=== PATIENT | male | born 1960 | race Hispanic/Latino ===

== ENCOUNTER 2024-07-01 05:54 | Day surgery (SDC) | payer MEDICARE ==
[2024-07-01] VITALS (13 sets, daily range): BP systolic 101–132; BP diastolic 59–78; PULSE 75–92; RESP 15–20; TEMP 97.5–98.6
[~2024-07-01] VITALS: Ht 157.5 cm; Wt 66.2 kg
[2024-07-01] MEDS: 0.9%NACL 1000ML 1,000 ML IV ONE (06:39)
[2024-07-01] MEDS ORDERED: FAMO20TA8 PO (06:43)
[2024-07-01] MEDS ORDERED: METF-444 PO (06:43)
[2024-07-01] MEDS ORDERED: PANT40TA54 PO (06:43)
[2024-07-01] MEDS ORDERED: TAMS-1 PO (06:43)
[2024-07-01] MEDS ORDERED: ATOR40TA71 PO (06:43)
[2024-07-01] MEDS ORDERED: ASPI-1197 PO (06:43)
[2024-07-01] MEDS ORDERED: proPOFol 10 MG/ML 20ML VIAL IV ONE (07:56)
[2024-07-01] MEDS ORDERED: FENTanyl CITRate PF 50 MCG/1 ML 2ML VIAL ONE (07:56)
[2024-07-01] MEDS ORDERED: LIDOCAINE HCL 400MG/20ML VIAL ONE (07:56)
[2024-07-01] MEDS ORDERED: ePHEDrine SULFate 50 MG/ML AMPULE ONE (08:09)
== END 2024-07-01 09:30 | disposition home or self-care (01) ==
LOC: DAH 05:54
PROVIDERS: ATTEND Surgery
DX: C20 Malignant neoplasm of rectum (principal); K56.690 Other partial intestinal obstruction; I10 Essential (primary) hypertension; E11.9 Type 2 diabetes mellitus without complications; K21.9 Gastro-esophageal reflux disease without esophagitis; M19.90 Unspecified osteoarthritis, unspecified site; E78.5 Hyperlipidemia, unspecified; Z79.84 Long term (current) use of oral hypoglycemic drugs; Z79.82 Long term (current) use of aspirin; Z79.899 Other long term (current) drug therapy
CPT/HCPCS: 45330; 82948 ×2; J3010; J3490 ×2; J7030; J2704

== ENCOUNTER → 2024-08-08 | Outpatient (CLI) | payer MEDICARE ==
[~2024-08-08] MED LIST: ASPI-1197 PO; ATOR40TA71 PO; FAMO20TA8 PO; METF-444 PO; PANT40TA54 PO; TAMS-1 PO
[2024-08-08 13:53] LABS: CREATININE 0.9 mg/dL (0.5-1.3)
== END | disposition home or self-care (01) ==
LOC: LAB 12:54
PROVIDERS: ATTEND Internal Medicine
DX: C20 Malignant neoplasm of rectum (principal)
CPT/HCPCS: 36415; 82565; 84520

== ENCOUNTER → 2024-08-12 | Outpatient (CLI) | payer MEDICARE ==
[~2024-08-12] MED LIST changes: +GADOTERATE MEGLUMINE 10 MMOL/20 ML VIAL IV ONE
--- NOTE | 2024-08-12 13:36 | HMCIMG ---
MR PELVIS W/WO CON HISTORY: Rectal cancer COMPARISON: None TECHNIQUE: MRI of the pelvis was performed utilizing multiple pulse sequences in axial, coronal and sagittal planes. Patient was given 14 cc of Clariscan through intravenous route. FINDINGS: Evaluation of bowel loops are limited due to motion artifacts in this MRI study. CT may be performed for complete evaluation. There is extensive masslike structure noted in the rectosigmoid colon measuring 1.5 cm in cross section dimension and 9 cm in length. Colonoscopy and CT correlation is recommended. Circumferential wall thickening is seen of the rectum and rectosigmoid colon. Bladder is moderately distended. There is no evidence of pelvic adenopathy or ascites. Degenerative changes are seen of the spine and bilateral hips. IMPRESSION: 1. There is long segment of colon wall thickening noted involving the sigmoid colon with neoplastic process not excluded. CT correlation and colonoscopy correlation are recommended. Circumferential wall thickening is also seen in the rectum.
== END | disposition home or self-care (01) ==
LOC: RAH 07:58
PROVIDERS: ATTEND Surgery
DX: C20 Malignant neoplasm of rectum (principal); N32.89 Other specified disorders of bladder; M16.0 Bilateral primary osteoarthritis of hip
CPT/HCPCS: 72197; A9575

== ENCOUNTER 2025-05-05 14:30 | Inpatient (IN) | payer MEDICARE, MEDICAID ==
[~2025-05-05] VITALS: Ht 157.5 cm; Wt 69.4 kg
[2025-05-05 13:48] VITALS: BP 130/76; PULSE 98; RESP 16; TEMP 98.4
[2025-05-05 13:49] LABS: IMMATURE GRANULOCYTE ABSOLUTE 0.10 K/uL (0-1); NUCLEATED RED BLOOD CELLS 0.0 % (0.0-0.19); PLATELET COUNT (AUTO) 161 K/uL (130-400); RED BLOOD CELL COUNT(AUTO) 4.31 MIL/uL (4.50-6.20); RED CELL DISTRIBUTION WIDTH 12.5 % (11.0-15.5); WHITE BLOOD COUNT (AUTO) 5.8 K/uL (4.8-10.8)
[2025-05-05 13:59] LABS: INR 1.02 (0.85-1.15)
[2025-05-05 14:14] LABS: ASPARTATE AMINOTRANSFERASE 21.0 U/L (10-37); CREATININE 0.9 mg/dL (0.5-1.3); GLOMERULAR FILTR. RATE CALC 94.0 mL/min (>90); GLUCOSE,RANDOM 142.0 mg/dL (70-105); SODIUM SERUM 143.0 mmol/L (136-145); TOTAL PROTEIN, SERUM 6.7 g/dL (6.0-8.3); UREA NITROGEN, BLOOD 13.0 mg/dL (7-18)
--- NOTE | 2025-05-05 14:29 | EKG ---
[facility] Test Date: 2025-05-05 Test Time: 13:38:52 Pat Name: RAINER GALLEGOS Department: Patient ID: [facility] [place]-[id number] Room: 429 Gender: M Deployment Technician: [id number] : 1960 Requested By: SAVITA GARZON Order Number: [id number] Reading MD: Salvador Dowd Measurements Intervals [place] Rate: 90 P: 38 MD: 140 QRS: 35 QRSD: 74 T: 54 QT: 338 QTc: 414 Interpretive Statements Sinus rhythm No previous ECG available for comparison Electronically Signed On 05-10-2025 10:26:28 CDT by Salvador Dowd Please click the below link to view image of tracing.
[~2025-05-05 14:30] MED LIST changes: -GADOTERATE MEGLUMINE 10 MMOL/20 ML VIAL IV ONE; +LOSA50TA64 PO; -PANT40TA54 PO; -TAMS-1 PO
[2025-05-06] VITALS (18 sets, daily range): BP systolic 109–146; BP diastolic 44–71; PULSE 58–76; RESP 9–20; TEMP 96.9–97.9
[2025-05-06] MEDS: INVANZ 1GM+NS 50ML IVPB 50 ML IV ONE (07:00)
[2025-05-06] MEDS: 0.9%NACL 1000ML 1,000 ML IV ONE (13:55)
[2025-05-06] MEDS ORDERED: LIDOCAINE PF 100MG/5ML (2%) SYRINGE 5ML ONE (16:06)
[2025-05-06] MEDS ORDERED: GLYCOPYRROLATE 0.2 MG/ML 5 ML VIAL ONE (16:06)
[2025-05-06] MEDS ORDERED: SUCCINYLCHOLINE CHLORIDE 20 MG/ML 10 ML VIAL ONE (16:06)
[2025-05-06] MEDS ORDERED: NEOSTIGMINE METHYLSULFATE 1MG/ML IV ONE (16:06)
[2025-05-06] MEDS ORDERED: MIDAZOLAM HCL 1 MG/ML 2ML VIAL ONE (16:08)
--- NOTE | 2025-05-06 16:41 | OP ---
Operative Note: DATE OF PROCEDURE: 05/06/25 SURGEON: SAVITA GARZON MD AIRPLANE ELECTRICAL REPAIRER: [None] ANESTHESIA: [General endotracheal anesthesia] ANESTHESIOLOGIST/CHART PICKER: [] PREOPERATIVE DIAGNOSIS: [Rectal cancer] POSTOPERATIVE DIAGNOSIS: [Rectal cancer] SYNOPSIS: [No evidence of metastatic disease. No leak from anastomosis. Good blood supply to the anastomosis based on firefly.] PROCEDURE: [1. Robotic low anterior resection. 2. Robotic creation of diverting ileostomy. 3. Creation of omental flap. 4. Flexible sigmoidoscopy.] ESTIMATED BLOOD LOSS: [30 mL] INDICATIONS: [The patient is a very pleasant 65-year-old male who presents to the office with a rectal cancer. He has completed total neoadjuvant therapy. He was offered operative management. Complications, risks alternatives and benefits have been discussed with the patient and family in detail. Risks include infection, bleeding, injury to surrounding structures, need for further procedures, injury to the ureter, injury to nerves, leak from anastomosis, poor bowel function, need for permanent stoma, need for further intervention and . All questions were answered to their satisfaction and they all wished to proceed with the operation.] DESCRIPTION OF PROCEDURE: [The patient was brought to the operating theater and placed supine on the operating table. After appropriate general endotracheal anesthesia was administered and IV antibiotics given the patient is placed in the low lithotomy position. The abdomen was prepped and draped in appropriate sterile surgical fashion. Local anesthetic was injected and the Veress needle was used to insufflate the abdomen. The Optiview technique was used to enter the abdomen without any injury to surrounding structures. The abdomen was explored and there was no evidence of metastatic disease. Four other trocars were placed under direct visualization without injury. A incision was created at a previously marked right upper quadrant site for an ileostomy. A wound protractor was placed. The robot was docked in the usual sterile fashion. Attention was drawn to the left colon sigmoid colon was mobilized along the white line of Toldt. The left ureter was identified and preserved. The superior hemorrhoidal vessels were isolated and transected. A circumferential dissection around the rectum was achieved. The total mesorectal excision was performed. The presacral space was entered and the dissection was taken to the pelvic floor. The mass was identified by the tattoo. The rectum was transected at the lower rectum encompassing a total mesorectal excision. An end-to-side anastomosis was created between the rectum and the descending colon using a 29 mm EEA stapler. Firefly was utilized to assure good blood flow to anastomosis. An amniotic graft was placed at the anastomosis. An omental flap was created placed in the pelvis. The firefly was utilized to assure good blood flow to the anastomosis at both the transection point and time of anastomosis. The omental flap was also noted to be viable. The drain was placed in the pelvis. A segment of small bowel was brought up to the right upper quadrant for a diverting ileostomy. This was matured using a 3-0 chromic suture in a modified Harrison fashion. Excellent hemostasis was achieved. There were no complications. The instrument, sponge and needle count reported as correct x2 by nursing staff. A flexible sigmoidoscope was inserted and advanced to the anastomosis which was viable, had no bleeding and was noted to have no leak. All the above discussed with family.] SAVITA GARZON MD May 06, 2025 16:41
[2025-05-06] MEDS: LIDOCAINE 1%-EPI 1:100,000 20 ML VIAL ONE (18:09)
[2025-05-06] MEDS: INDOCYANINE GREEN 25 MG VIAL IJ ONE (20:05)
[2025-05-06] MEDS: SUGAMMADEX SODIUM 200 MG/2 ML VIAL IV ONE (22:02)
[2025-05-07] VITALS (12 sets, daily range): BP systolic 110–153; BP diastolic 49–74; PULSE 62–94; RESP 17–20; TEMP 97.5–99.4; O2SAT 95–98
--- NOTE | 2025-05-07 00:21 | CONS ---
Consult Note Vitals/Labs Vital Signs Date Time Temp Pulse Resp B/P (MAP) Pulse Ox O2 Delivery O2 Flow Rate FiO2 05/06/25 23:35 97.3 58 20 95 Nasal Cannula 2.0 24 REASON FOR CONSULT: [Medical Management] HISTORY OF PRESENT ILLNESS: [Mr. Gannon is 65-year-old that was seen 04/11 reports that admitted cancer Service. Patient is status post low anterior resection on 05/06/25. Hospitalist service was requested for medical management. Past medical history: Diabetes mellitius type2, hypertension, hyperlipidemia, arthritis Past surgical history: Denies previous surgeries SOCIAL HISTORY: [Patient has smoked three cigarettes daily. Patient drinks alcohol once a week usually eight beers that are 16 oz each. Patient denies drug use.] ASSESSMENT: [Rectal cancer, POA Status post robotic low anterior resection on 05/06/2025 Diabetes mellitius type2 Hypertension Hyperlipidemia Arthritis] PLAN: [ Admit patient to medical floor as an patient status. Patient is being followed by Colorectal surgery Service. Clear liquid diet. Monitor patient's labs. D5 1/2 NS +20 KCL at 75 mL/HR Patient received 1 of Invanz As-needed Tylenol for fever DVT prophylaxis with Lovenox 40 mg subcutaneously once daily. Famotidine 20 mg IV twice daily for GI prophylaxis As needed analgesia with hydrocodone, morphine As-needed antiemetic, Zofran Insulin sliding scale Glucometer checks a.c. and HS One thousand eight hundred ADA with no okay with General surgery Service Activity as tolerated Intake and output every shift Incentive spirometry every 4 hours while awake AMIRA drain to bulb suction Out of bed to chair twice daily Reconciled patient's home medications, continue losartan, atorvastatin. 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 Allergies: Coded Allergies: No Known Drug Allergies (Unverified Allergy, Unknown, 06/30/24) Medications Current Medications Ertapenem 50 ml @ 100 mls/hr ONCE ONCE IV; Start 05/06/25 at 07:00; Stop 05/06/25 at 07:29; Status DC Sodium Chloride 1,000 ml @ As Directed STK-MED ONCE IV Last administered on 05/06/25at 13:55; Start 05/06/25 at 12:09; Stop 05/06/25 at 12:09; Status DC Dexamethasone Sodium Phosphate 10 mg STK-MED ONCE .ROUTE; Start 05/06/25 at 16:06; Stop 05/06/25 at 16:06; Status DC Lidocaine HCl 100 mg STK-MED ONCE .ROUTE; Start 05/06/25 at 16:06; Stop 05/06/25 at 16:06; Status DC Glycopyrrolate 1 mg STK-MED ONCE .ROUTE; Start 05/06/25 at 16:06; Stop 05/06/25 at 16:06; Status DC Ondansetron HCl 4 mg STK-MED ONCE .ROUTE; Start 05/06/25 at 16:06; Stop 05/06/25 at 16:06; Status DC Propofol 200 mg STK-MED ONCE IV; Start 05/06/25 at 16:06; Stop 05/06/25 at 16:07; Status DC Neostigmine Methylsulfate 10 mg STK-MED ONCE IV; Start 05/06/25 at 16:06; Stop 05/06/25 at 16:07; Status DC Succinylcholine Chloride 200 mg STK-MED ONCE .ROUTE; Start 05/06/25 at 16:06; Stop 05/06/25 at 16:07; Status DC Fentanyl Citrate 100 mcg STK-MED ONCE .ROUTE; Start 05/06/25 at 16:07; Stop 05/06/25 at 16:07; Status DC Midazolam HCl 2 mg STK-MED ONCE .ROUTE; Start 05/06/25 at 16:08; Stop 05/06/25 at 16:08; Status DC Indocyanine Green 25 mg STK-MED ONCE IJ Last administered on 05/06/25at 20:05; Start 05/06/25 at 16:51; Stop 05/06/25 at 16:51; Status DC Bupivacaine HCl 5 mg STK-MED ONCE .ROUTE Last administered on 05/06/25at 18:09; Start 05/06/25 at 16:53; Stop 05/06/25 at 16:53; Status DC Lidocaine/ Epinephrine 20 ml STK-MED ONCE .ROUTE Last administered on 05/06/25at 18:09; Start 05/06/25 at 16:53; Stop 05/06/25 at 16:54; Status DC Fentanyl Citrate 100 mcg STK-MED ONCE .ROUTE; Start 05/06/25 at 17:08; Stop 05/06/25 at 17:08; Status DC Phenylephrine HCl 10 mg STK-MED ONCE IV; Start 05/06/25 at 17:42; Stop 05/06/25 at 17:42; Status DC Rocuronium [place] 50 mg STK-MED ONCE .ROUTE; Start 05/06/25 at 18:25; Stop 05/06/25 at 18:26; Status DC Fentanyl Citrate 100 mcg STK-MED ONCE .ROUTE; Start 05/06/25 at 21:13; Stop 05/06/25 at 21:13; Status DC Acetaminophen/ Hydrocodone Bitart 1 tab Q4H PRN PO; Start 05/06/25 at 21:30; Stop 05/11/25 at 21:29 Morphine Sulfate 4 mg Q3H PRN IV; Start 05/06/25 at 21:30; Stop 05/13/25 at 21:29 Ondansetron HCl 4 mg Q4H PRN IVP Last administered on 05/06/25at 23:06; Start 05/06/25 at 21:30; Stop 06/05/25 at 21:29 Acetaminophen 650 mg Q4H PRN PO; Start 05/06/25 at 21:30; Stop 06/05/25 at 21:29 Famotidine 20 mg BID IV; Start 05/07/25 at 09:00; Stop 06/06/25 at 08:59 Insulin Human Regular AD PRN SQ; Start 05/06/25 at 21:30; Stop 06/05/25 at 21:29 Potassium Chloride/Dextrose/ Sod Cl 1,000 ml @ 75 mls/hr [id number] IV; Start 05/06/25 at 21:30; Stop 06/05/25 at 21:29 Enoxaparin Sodium 40 mg DAILY SQ; Start 05/07/25 at 09:00; Stop 06/06/25 at 08:59 Fentanyl Citrate 100 mcg STK-MED ONCE .ROUTE Last administered on 05/06/25at 22:01; Start 05/06/25 at 21:40; Stop 05/06/25 at 21:40; Status DC Fentanyl Citrate 25 mcg ONCE ONCE IVP Last administered on 05/06/25at 21:59; Start 05/06/25 at 21:41; Stop 05/06/25 at 21:48; Status DC Acetaminophen 100 ml @ As Directed STK-MED ONCE .ROUTE Last administered on 05/06/25at 21:48; Start 05/06/25 at 21:43; Stop 05/06/25 at 21:43; Status DC Fentanyl Citrate 50 mcg ONCE ONCE IVP; Start 05/06/25 at 22:00; Stop 05/06/25 at 22:01; Status DC Fentanyl Citrate 25 mcg ONCE ONCE IVP; Start 05/06/25 at 22:00; Stop 05/06/25 at 22:06; Status DC MELISSA HERNANDEZ WILDLIFE CONTROL OPERATOR May 07, 2025 00:21
[2025-05-07] MEDS: D5W-1/2 NS/20MEQ KCL 1,000 ML IV SCH (00:44)
[2025-05-07 04:50] LABS: IMMATURE GRANULOCYTE ABSOLUTE 0.04 K/uL (0-1); NUCLEATED RED BLOOD CELLS 0.0 % (0.0-0.19); PLATELET COUNT (AUTO) 118 K/uL (130-400); RED BLOOD CELL COUNT(AUTO) 3.66 MIL/uL (4.50-6.20); RED CELL DISTRIBUTION WIDTH 12.2 % (11.0-15.5); WHITE BLOOD COUNT (AUTO) 8.3 K/uL (4.8-10.8)
[2025-05-07 05:08] LABS: CREATININE 1.0 mg/dL (0.5-1.3); GLOMERULAR FILTR. RATE CALC 83.0 mL/min (>90); GLUCOSE,RANDOM 196.0 mg/dL (70-105); SODIUM SERUM 140.0 mmol/L (136-145); UREA NITROGEN, BLOOD 11.0 mg/dL (7-18)
[2025-05-07 05:13] LABS: WBC MORPHOLOGY CONSISTENT W/DIFF
--- NOTE | 2025-05-07 08:27 | PN ---
COLORECTAL PROGRESS NOTE Date of Visit: May 07, 2025 Time of Visit: 08:22 Events / Notes: [ This is a 65 yo male patient with hx of rectal cancer who has completed total neoadjuvant therapy. He underwent a robotic low anterior resection with diverting ileostomy, creation of omental flap, and flexible sigmoidoscopy on 05/06/25. Patient VSS. WBC 8.3, HGB 11.9, HCT 34.3, platelets of 118. VSS. Patient patient examined at bedside. He is resting in bed in no acute distress. Bilateral breath sounds are clear. Abdomen is soft and mildly distended. Ileostomy in place with small amount of liquid output. AMIRA drain to left side of abdomen with serosanguineous discharge. Active bowel sounds are present. Clarke catheter draining clear yellow urine. Plan of care discussed with patient. Encouraged ambulation and IS exercises will have PT evaluate patient and assist with mobility. ] Review of Systems: CONSTITUTIONAL: No malaise or change in sensation of wellbeing. ENMT: No rhinorrhea, otorrhea, sinus pain, ear ache. CARDIOVASCULAR: No angina, palpitations, orthopnea or paroxysmal dyspnea. RESPIRATORY: No SOB. GASTROINTESTINAL: No abdominal pain, nausea, vomiting, diarrhea, hematemesis, melena or change in the patient's habitual bowel movements consistency/number. GENITOURINARY: No dysuria, hematuria or change in bladder continence. MUSCULOSKELETAL: No new muscle pain or decrease in muscular strength. No new joint swelling, redness or tenderness. SKIN: No new rash. Physical Exam: GEN: Awake, alert, oriented in person, time and place, and in no acute distress. HEENT: No sinus tenderness. Tympanic membranes were not examined. No rhinorrhea. Oral pharyngeal mucosa is pink, moist and within normal limits. Neck is supple with no cervical lymphadenopathy, thyromegaly or JVD. CHEST: Inspection, palpation and percussion of the chest were unremarkable. Lung auscultation revealed normal breath sounds bilaterally. CARDIAC: PMI is within normal limits. Heart sounds are regular. Normal S1, S2. No gallop or murmur. ABD: Soft, non-tender and not distended. No peritoneal signs on palpation. No organomegaly. Normal bowel sounds. EXT: No cyanosis or clubbing. No edema. SKIN: Intact. No rashes. JOINTS: No evidence of synovitis or acute arthritis. NEURO: Alert and oriented to name, place and person. Cranial nerve examination is unremarkable. No focal motor deficits. Normal speech. Gait is normal. Strength is normal. Vital Signs (last 8hr) Date Time Temp Pulse Resp B/P (MAP) Pulse Ox O2 Delivery O2 Flow Rate FiO2 05/07/25 04:35 97.9 64 18 139/71 98 Nasal Cannula 2.0 05/07/25 03:35 97.7 63 18 128/61 98 Nasal Cannula 2.0 05/07/25 02:35 97.5 62 18 116/49 97 Nasal Cannula 2.0 05/07/25 01:35 97.9 66 20 110/50 97 Nasal Cannula 2.0 05/07/25 00:35 97.9 69 20 151/67 97 Nasal Cannula 2.0 24 Laboratory: [ ] Laboratory: Test 05/07/25 05:46 05/07/25 04:21 05/05/25 13:35 Range/Units Whole Blood Glucose 197 H 70-110 MG/DL White Blood Count 8.3 4.8-10.8 K/uL Red Blood Count 3.66 L 4.50-6.20 MIL/uL Hemoglobin 11.9 L 14.0-18.0 g/dL Hematocrit 34.3 L 42-54 % Mean Corpuscular Volume 93.7 79-99 fL Mean Corpuscular Hemoglobin 32.5 27.0-33.0 pg Mean Corpuscular Hemoglobin Concent 34.7 32.0-36.0 g/dL Red Cell Distribution Width 12.2 11.0-15.5 % Platelet Count 118 #L 130-400 K/uL Mean Platelet Volume 10.4 7.5-10.5 fL Immature Granulocyte % (Auto) 0.5 0-1 % Neutrophils (%) (Auto) 90.9 H 40.0-77.0 % Lymphocytes (%) (Auto) 2.4 L 21.0-51.0 % Monocytes (%) (Auto) 6.1 3.0-13.0 % Eosinophils (%) (Auto) 0.0 0.0-8.0 % Basophils (%) (Auto) 0.1 0.0-5.0 % Neutrophils # (Auto) 7.6 1.8-7.7 K/uL Lymphocytes # (Auto) 0.2 L 1.0-4.8 K/uL Monocytes # (Auto) 0.5 0.1-1.0 K/uL Eosinophils # (Auto) 0.00 0.00-0.70 K/uL Basophils # (Auto) 0.01 0.00-0.20 K/uL Absolute Immature Granulocyte (auto 0.04 0-1 K/uL Nucleated Red Blood Cells 0.0 0.0-0.19 % White Cell Morphology Comment CONSISTENT W/DIFF Sodium Level 140 136-145 mmol/L Potassium Level 4.3 3.5-5.1 mmol/L Chloride Level 105 101-111 mmol/L Carbon Dioxide Level 27 21-32 mmol/L Blood Urea Nitrogen 11 7-18 mg/dL Creatinine 1.0 0.5-1.3 mg/dL Glomerular Filtration Rate Calc 83 >90 mL/min Random Glucose 196 H 70-105 mg/dL Total Calcium 8.3 L 8.5-10.1 mg/dL Prothrombin Time 10.8 9.6-11.6 SEC Prothromb Time International Ratio 1.02 0.85-1.15 Activated Partial Thromboplast Time 26.1 L 26.3-35.5 SEC Total Bilirubin 0.4 0.2-1.0 mg/dL Aspartate Amino Transf (AST/SGOT) 21 10-37 U/L Alanine Aminotransferase (ALT/SGPT) 46 12-78 U/L Alkaline Phosphatase 81 50-136 U/L Total Protein 6.7 6.0-8.3 g/dL Albumin 3.7 3.5-5.0 g/dL Current Medications Medications (Trade) Dose Ordered Sig/Manoj Route PRN Reason Start Time Stop Time Status Last Admin Dose Admin Acetaminophen (TYLenol 325MG TAB) 650 mg Q4H PRN PO TEMPERATURE GREATER THAN 101 05/06/25 21:30 06/05/25 21:29 Acetaminophen/ Hydrocodone Bitart (NORco 5/325MG) 1 tab Q4H PRN PO MODERATE PAIN (4-6) 05/06/25 21:30 05/11/25 21:29 Atorvastatin Calcium (LIPItor 40MG) 40 mg DAILY PO 05/07/25 09:00 06/06/25 08:59 Enoxaparin Sodium (Lovenox) 40 mg DAILY SQ 05/07/25 09:00 06/06/25 08:59 Famotidine (Pepcid 20mg Vial) 20 mg BID IV 05/07/25 09:00 06/06/25 08:59 Insulin Human Regular (humuLIN R 100 UNIT/ML 3ML) AD PRN SQ SLIDING SCALE COVERAGE 05/06/25 21:30 06/05/25 21:29 05/07/25 07:43 4 UNIT Losartan Potassium (CozAAR 50 mg TAB) 50 mg DAILY PO 05/07/25 09:00 06/06/25 08:59 Morphine Sulfate (morPHINE 4MG SYG) 4 mg Q3H PRN IV SEVERE PAIN (7-10) 05/06/25 21:30 05/13/25 21:05/07/25 00:43 4 MG Ondansetron HCl (zoFRAN 4MG INJ) 4 mg Q4H PRN IVP NAUSEA 05/06/25 21:30 06/05/25 21:29 05/06/25 23:06 4 MG Potassium Chloride/Dextrose/ Sod Cl 1,000 ml @ 75 mls/hr [id number] IV 05/06/25 21:30 06/05/25 21:29 05/07/25 00:44 75 MLS/HR Diagnostics / Radiology: [COPY/PASTE HERE IF NO REPORTS PLEASE DELETE SECTION] Assessment: [Rectal cancer ] Plan: Advance diet as tolerated Encourage ambulation Encourage I/s exercises Pain meds as needed Antiemetics prn Keep clarke in place and remove on post op day 2 Begin Lomotil on POD 2. Please call with questions, concerns and change in clinical status. Appreciate hospitalist's assistance in our patient care. [ ] IRMA MASCORRO NP May 07, 2025 08:27
[2025-05-07] MEDS: FAMOTIDINE 20MG VIAL IV SCH (08:47)
[2025-05-07] MEDS: ENOXAPARIN SODIUM 40 MG/0.4 ML SYRINGE SQ SCH (08:48)
[2025-05-07] MEDS: HYDROcodone/APAP 5/325 1 TAB TABLET PO PRN (09:37)
--- NOTE | 2025-05-07 09:54 | NUR ---
DCP: HOME Sw met with pt who is a gentleman, lives alone in his housing apt. Pt has a provider daily for 4hrs, Rehana Santo (also his best friend) to assist pt with ADLS, home management, transportation and meal prep. Pt has no HH or HD services. PCP is Noemy Peters and uses [facility] pharm for rx needs. Discussed dc needs. encouraged pt to consider SNF, since he lives alone, pt declined, wants to go home. Educated on need for MPOA. Pt states he at 15yro and has not seen "the girl" since. they never but he has no idea where she is now, he has no children. He has a brother Nikolai Gannon. Pt does not have cell phone with him. He will provide contact #s when he has them. Pt's nurse made aware of need for contact # Addendum: 05/07/25 at 1002 by ZAFAR WELCH SS Amended: Links added.
[2025-05-07] MEDS ORDERED: DOCU-116 PO (10:45)
[2025-05-07] MEDS ORDERED: HYDR-4060 PO (10:45)
[2025-05-08] VITALS: BP 130/70; PULSE 90; RESP 20; TEMP 98.7
[2025-05-08 04:00] VITALS: BP 135/76; PULSE 72; RESP 20; TEMP 98.2
[2025-05-08 04:37] LABS: IMMATURE GRANULOCYTE ABSOLUTE 0.04 K/uL (0-1); NUCLEATED RED BLOOD CELLS 0.0 % (0.0-0.19); PLATELET COUNT (AUTO) 118 K/uL (130-400); RED BLOOD CELL COUNT(AUTO) 3.60 MIL/uL (4.50-6.20); RED CELL DISTRIBUTION WIDTH 12.0 % (11.0-15.5); WHITE BLOOD COUNT (AUTO) 6.5 K/uL (4.8-10.8)
[2025-05-08 04:53] LABS: ASPARTATE AMINOTRANSFERASE 17.0 U/L (10-37); CREATININE 0.9 mg/dL (0.5-1.3); GLOMERULAR FILTR. RATE CALC 94.0 mL/min (>90); GLUCOSE,RANDOM 148.0 mg/dL (70-105); SODIUM SERUM 139.0 mmol/L (136-145); TOTAL PROTEIN, SERUM 5.8 g/dL (6.0-8.3); UREA NITROGEN, BLOOD 11.0 mg/dL (7-18)
[2025-05-08] MEDS: DIPHENOXYLATE HCL/ATROPINE 2.5/0.025 MG TAB PO ONE (07:08)
--- NOTE | 2025-05-08 07:56 | NUR ---
NURSING NOTES GAMEZ CATHETER REMOVED @ 0700, WELL TOLERATED BY PATIENT. DENIES C/O PAIN POST REMOVAL OF CATHETER. INSTRUCTED THAT HE NEEDS TO URINATE 4-6 HOURS AFTER CATHETER REMOVAL. IF HE FEELS PRESSURE TO LOWER ABDOMEN AND UNABLE TO URINATE, TO LET US KNOW BY PRESSING THE CALL LIGHT. UNDERSTANDING VERBALIZED. WILL CONTINUE TO MONITOR.
[2025-05-08 08:00] VITALS: BP 137/88; PULSE 78; RESP 18; TEMP 98.7
[2025-05-08 09:59] VITALS: O2SAT 96
--- NOTE | 2025-05-08 11:56 | PN ---
COLORECTAL PROGRESS NOTE Date of Visit: May 08, 2025 Time of Visit: 11:54 Events / Notes: [ This is a 65 yo male patient with hx of rectal cancer who has completed total neoadjuvant therapy. He underwent a robotic low anterior resection with diverting ileostomy, creation of omental flap, and flexible sigmoidoscopy on 05/06/25. Patient VSS. WBC 8.3, HGB 11.9, HCT 34.3, platelets of 118. VSS. Patient patient examined at bedside. He is resting in bed in no acute distress. Bilateral breath sounds are clear. Abdomen is soft and mildly distended. Ileostomy in place with small amount of liquid output. CALI drain to left side of abdomen with serosanguineous discharge. Active bowel sounds are present. Shell catheter draining clear yellow urine. Plan of care discussed with patient. Encouraged ambulation and IS exercises will have PT evaluate patient and assist with mobility. 05/08/25: No acute events overnight. Patient is hemodynamically stable. White count today is at 6.5. Hemoglobin 11.8. Platelets 118. CMP unremarkable. Patient has tolerated his diet with out any nausea or vomiting. He has been able to void and is passing soft output via ileostomy. BBS are clear. His abdomen is soft. CALI drain with serous output. Incisions are D&I. He is ambulating without difficulties. Home care instructions with ER warnings given. He is to keep f/u appt at [facility] on 05/22/25 at 9:15am. He is to keep appt with Roldan Yeager NP stoma nurse for [facility] 05/13/25. Patient verbalized understanding and agreement. ] Review of Systems: CONSTITUTIONAL: No malaise or change in sensation of wellbeing. ENMT: No rhinorrhea, otorrhea, sinus pain, ear ache. CARDIOVASCULAR: No angina, palpitations, orthopnea or paroxysmal dyspnea. RESPIRATORY: No SOB. GASTROINTESTINAL: No abdominal pain, nausea, vomiting, diarrhea, hematemesis, melena or change in the patient's habitual bowel movements consistency/number. GENITOURINARY: No dysuria, hematuria or change in bladder continence. MUSCULOSKELETAL: No new muscle pain or decrease in muscular strength. No new joint swelling, redness or tenderness. SKIN: No new rash. Physical Exam: GEN: Awake, alert, oriented in person, time and place, and in no acute distress. HEENT: No sinus tenderness. Tympanic membranes were not examined. No rhinorrhea. Oral pharyngeal mucosa is pink, moist and within normal limits. Neck is supple with no cervical lymphadenopathy, thyromegaly or JVD. CHEST: Inspection, palpation and percussion of the chest were unremarkable. Lung auscultation revealed normal breath sounds bilaterally. CARDIAC: PMI is within normal limits. Heart sounds are regular. Normal S1, S2. No gallop or murmur. ABD: Soft, non-tender and not distended. No peritoneal signs on palpation. No organomegaly. Normal bowel sounds. ileostomy with soft output. Cali drain with serous output. EXT: No cyanosis or clubbing. No edema. SKIN: Intact. No rashes. JOINTS: No evidence of synovitis or acute arthritis. NEURO: Alert and oriented to name, place and person. Cranial nerve examination is unremarkable. No focal motor deficits. Normal speech. Strength is normal. Vital Signs (last 8hr) Date Time Temp Pulse Resp B/P (MAP) Pulse Ox O2 Delivery O2 Flow Rate FiO2 05/08/25 09:59 96 Room Air* 0 21 05/08/25 08:00 98.8 78 18 137/88 96 Room Air 05/08/25 04:00 98.2 72 20 135/76 95 Room Air Laboratory: [ ] Laboratory: Test 05/08/25 05:03 05/08/25 04:04 05/07/25 04:21 Range/Units Whole Blood Glucose 135 H 70-110 MG/DL White Blood Count 6.5 4.8-10.8 K/uL Red Blood Count 3.60 L 4.50-6.20 MIL/uL Hemoglobin 11.8 L 14.0-18.0 g/dL Hematocrit 33.3 L 42-54 % Mean Corpuscular Volume 92.5 79-99 fL Mean Corpuscular Hemoglobin 32.8 27.0-33.0 pg Mean Corpuscular Hemoglobin Concent 35.4 32.0-36.0 g/dL Red Cell Distribution Width 12.0 11.0-15.5 % Platelet Count 118 L 130-400 K/uL Mean Platelet Volume 10.7 H 7.5-10.5 fL Immature Granulocyte % (Auto) 0.6 0-1 % Neutrophils (%) (Auto) 89.6 H 40.0-77.0 % Lymphocytes (%) (Auto) 2.9 L 21.0-51.0 % Monocytes (%) (Auto) 6.7 3.0-13.0 % Eosinophils (%) (Auto) 0.0 0.0-8.0 % Basophils (%) (Auto) 0.2 0.0-5.0 % Neutrophils # (Auto) 5.8 1.8-7.7 K/uL Lymphocytes # (Auto) 0.2 L 1.0-4.8 K/uL Monocytes # (Auto) 0.4 0.1-1.0 K/uL Eosinophils # (Auto) 0.00 0.00-0.70 K/uL Basophils # (Auto) 0.01 0.00-0.20 K/uL Absolute Immature Granulocyte (auto 0.04 0-1 K/uL Nucleated Red Blood Cells 0.0 0.0-0.19 % Sodium Level 139 136-145 mmol/L Potassium Level 4.0 3.5-5.1 mmol/L Chloride Level 106 101-111 mmol/L Carbon Dioxide Level 28 21-32 mmol/L Blood Urea Nitrogen 11 7-18 mg/dL Creatinine 0.9 0.5-1.3 mg/dL Glomerular Filtration Rate Calc 94 >90 mL/min Random Glucose 148 H 70-105 mg/dL Total Calcium 8.6 8.5-10.1 mg/dL Magnesium Level 2.20 1.80-2.40 mg/dL Total Bilirubin 0.3 0.2-1.0 mg/dL Aspartate Amino Transf (AST/SGOT) 17 10-37 U/L Alanine Aminotransferase (ALT/SGPT) 28 12-78 U/L Alkaline Phosphatase 58 50-136 U/L Total Protein 5.8 L 6.0-8.3 g/dL Albumin 2.9 L 3.5-5.0 g/dL White Cell Morphology Comment CONSISTENT W/DIFF Current Medications Medications (Trade) Dose Ordered Sig/Manoj Route PRN Reason Start Time Stop Time Status Last Admin Dose Admin Acetaminophen (TYLenol 325MG TAB) 650 mg Q4H PRN PO TEMPERATURE GREATER THAN 101 05/06/25 21:30 06/05/25 21:29 Acetaminophen/ Hydrocodone Bitart (NORco 5/325MG) 1 tab Q4H PRN PO MODERATE PAIN (4-6) 05/06/25 21:30 8/4/25 21:29 05/07/25 22:05 1 TAB Atorvastatin Calcium (LIPItor 40MG) 40 mg DAILY PO 05/07/25 09:00 06/06/25 08:59 05/08/25 08:15 40 MG Enoxaparin Sodium (Lovenox) 40 mg DAILY SQ 05/07/25 09:00 06/06/25 08:59 05/08/25 08:15 40 MG Famotidine (Pepcid 20mg Vial) 20 mg BID IV 05/07/25 09:00 06/06/25 08:59 05/08/25 08:15 20 MG Insulin Human Regular (humuLIN R 100 UNIT/ML 3ML) AD PRN SQ SLIDING SCALE COVERAGE 05/06/25 21:30 06/05/25 21:05/07/25 07:43 4 UNIT Losartan Potassium (CozAAR 50 mg TAB) 50 mg DAILY PO 05/07/25 09:00 06/06/25 08:59 05/08/25 08:15 50 MG Morphine Sulfate (morPHINE 4MG SYG) 4 mg Q3H PRN IV SEVERE PAIN (7-10) 05/06/25 21:30 05/13/25 21:29 05/07/25 17:41 4 MG Ondansetron HCl (zoFRAN 4MG INJ) 4 mg Q4H PRN IVP NAUSEA 05/06/25 21:30 06/05/25 21:29 05/07/25 11:45 4 MG Potassium Chloride/Dextrose/ Sod Cl 1,000 ml @ 75 mls/hr [id number] IV 05/06/25 21:30 05/07/25 18:09 DC 05/07/25 00:44 75 MLS/HR Diagnostics / Radiology: [COPY/PASTE HERE IF NO REPORTS PLEASE DELETE SECTION] Assessment: [Rectal cancer ] Plan: Advance diet as tolerated Encourage ambulation Encourage I/s exercises Pain meds as needed Antiemetics prn Monitor ileostomy output and report any output greater than 1000ml. Continue Lomotil qid Patient may be discharge from colorectal standpoint Patient is to f/u at [facility] office on 05/22/25 at 9:15am. Please call with questions, concerns and change in clinical status. Appreciate hospitalist's assistance in our patient care. [ ] IRMA MASCORRO NP May 08, 2025 11:56
[2025-05-08 12:00] VITALS: BP 119/69; PULSE 78; RESP 18; TEMP 98.5
[2025-05-08 14:36] LABS: APPEARANCE,URINE CLEAR (CLEAR); GLUCOSE, URINE (UA) NEGATIVE (NEGATIVE); LEUKOCYTE ESTERASE ,URINE NEGATIVE Leu/uL (NEGATIVE); NITRATE,URINE NEGATIVE (NEGATIVE); OCCULT BLOOD,URINE NEGATIVE (NEGATIVE)
[2025-05-08 14:39] LABS: ADD UA MICROSCOPIC NO
--- NOTE | 2025-05-08 15:03 | PN ---
CATALYST PROGRESS NOTE Date of Service: May 08, 2025 Time of Service: 14:40 SUBJECTIVE: He is a 65 year old male with past medical history of rectal cancer, diabetes mellitus type 2, Hypertension, Hyperlipidemia and arthritis. He completed total neoadjuvant therapy and underwent a robotic low anterior resection with diverting ileostomy, creation of omental flap, and flexible sigmoidoscopy on 05/06/25. Patient has smoked three cigarettes daily. Patient drinks alcohol once a week usually eight beers that are 16 oz each. Patient denies drug use. Hospitalist was consulted for medical management. 05/08/2025: Patient is seen in room no 429. Today is his post operative day 2. He is complaining of burning sensation while urinating. His vitals are in the normal range and his labs are normal except for Hb is 11.8, Plt 118, Glucose is 135, Alb is 2.9, protein is 5.8. He has a AMIRA drain in place and output is 80ml yesterday. He has ileostomy. Shell's catheter was removed today. He is ambulating without difficulties. He has been able to void and is passing soft output via ileostomy. Bowel sounds are clear. His abdomen is soft. He is on GI soft diet. We ordered a urinalysis and it showed no evidence of UTI. In the evening colorectal surgery cleared him for discharge and his AMIRA drain was removed. He has no symptoms. His vitals are stable. So we are signing off. REVIEW OF SYSTEMS CONSTITUTIONAL: Denies fevers, chills, or night sweats. No unintentional weight loss reported. NEUROLOGICAL: Denies headache, amaurosis fugax, motor weakness, sensory deficit, vertigo/spinning sensation, gait abnormalities, or tremors. ENT: No hearing loss, otalgia, otorrhea, rhinitis, rhinorrhea, hoarseness, or sore throat. CARDIOVASCULAR: Denies any exertional angina, dyspnea on exertion, orthopnea, paroxysmal nocturnal dyspnea, palpitations, life-threatening arrhythmias, claudication. PULMONARY: Denies any shortness of breath, cough, phlegm/sputum, hemoptysis, pleuritic chest pain. SLEEP: Denies morning headaches, daytime somnolence or napping. Denies difficulty falling asleep, staying asleep, waking from sleep. Denies knowledge of snoring. GASTROINTESTINAL: Denies any type of dysphagia to either liquids or solids. Denies nausea, vomiting, pyrosis, early satiety, abdominal pain, diarrhea, constipation, or changes in stool consistency or caliber. Denies coffee-ground emesis, hematemesis, hematochezia, or melanotic stools. GENITOURINARY: Denies frequency, urgency, nocturia, hematuria or incontinence (Storage/Irritative symptoms.) Low urinary stream, straining to void, urinary intermittency or hesitancy, splitting of the voiding stream, terminal dribbling. ENDOCRINOLOGIC: Denies polyuria, polydipsia, polyphagia or heat/cold intolerances. HEMATOLOGIC: Denies thrombophilia/previous clots, or coagulopathy/bleeding disorders. ONCOLOGIC: Denies personal history of malignancy. DERMATOLOGIC: Denies rashes or pruritus. PSYCHIATRIC: Denies any suicidal or homicidal ideation. Denies hallucinations. PHYSICAL EXAM GENERAL APPEARANCE: The patient is awake, alert, and oriented, in no acute cardiopulmonary distress. NEUROLOGICAL: Cranial nerves II-XII grossly intact. Motor is 5/5 in bilateral upper and lower extremities proximal to distal. No sensory deficits. HEENT: Face is symmetric. Pupils are equal and reactive. Extraocular movements are intact. NECK: Supple. No JVD. No thyromegaly. No submental, submandibular, pre- /postauricular, occipital or supraclavicular lymphadenopathy. CHEST: Normal chest expansion. No Telemetry. LUNGS: Absence of any rales, rhonchi or any wheezing. CARDIOVASCULAR: Regular. S1 and S2 normal. No appreciable rubs, murmurs or gallops. ABDOMEN: Soft, nontender, and nondistended. There is no rebound, voluntary g uarding, or rigidity. : Deferred. No Shell. EXTREMITIES: Non-edematous and not cyanotic. No clubbing. Good capillary refill. SKIN: No skin breakdown. Vital Signs (last 8hr) Date Time Temp Pulse Resp B/P (MAP) Pulse Ox O2 Delivery O2 Flow Rate FiO2 05/08/25 12:00 98.4 78 18 119/69 98 Room Air 05/08/25 09:59 96 Room Air* 0 21 05/08/25 08:00 98.8 78 18 137/88 96 Room Air LABS: Laboratory: Test 05/08/25 14:27 05/08/25 11:53 05/08/25 04:04 05/07/25 04:21 Range/Units Urine Color LIGHT-YELLOW YELLOW Urine Appearance CLEAR CLEAR Urine pH 6.5 5.0-8.0 Urine Specific [place] 1.008 1.001-1.031 Urine Protein NEGATIVE NEGATIVE mg/dL Urine Glucose (UA) NEGATIVE NEGATIVE mg/dL Urine Ketones NEGATIVE NEGATIVE mg/dL Urine Occult Blood NEGATIVE NEGATIVE Urine Nitrate NEGATIVE NEGATIVE Urine Bilirubin NEGATIVE NEGATIVE mg/dL Urine Urobilinogen 0.2 0.2-1.0 mg/dL Urine Leukocyte Esterase NEGATIVE NEGATIVE [place]/uL Whole Blood Glucose 141 H 70-110 MG/DL White Blood Count 6.5 4.8-10.8 K/uL Red Blood Count 3.60 L 4.50-6.20 MIL/uL Hemoglobin 11.8 L 14.0-18.0 g/dL Hematocrit 33.3 L 42-54 % Mean Corpuscular Volume 92.5 79-99 fL Mean Corpuscular Hemoglobin 32.8 27.0-33.0 pg Mean Corpuscular Hemoglobin Concent 35.4 32.0-36.0 g/dL Red Cell Distribution Width 12.0 11.0-15.5 % Platelet Count 118 L 130-400 K/uL Mean Platelet Volume 10.7 H 7.5-10.5 fL Immature Granulocyte % (Auto) 0.6 0-1 % Neutrophils (%) (Auto) 89.6 H 40.0-77.0 % Lymphocytes (%) (Auto) 2.9 L 21.0-51.0 % Monocytes (%) (Auto) 6.7 3.0-13.0 % Eosinophils (%) (Auto) 0.0 0.0-8.0 % Basophils (%) (Auto) 0.2 0.0-5.0 % Neutrophils # (Auto) 5.8 1.8-7.7 K/uL Lymphocytes # (Auto) 0.2 L 1.0-4.8 K/uL Monocytes # (Auto) 0.4 0.1-1.0 K/uL Eosinophils # (Auto) 0.00 0.00-0.70 K/uL Basophils # (Auto) 0.01 0.00-0.20 K/uL Absolute Immature Granulocyte (auto 0.04 0-1 K/uL Nucleated Red Blood Cells 0.0 0.0-0.19 % Sodium Level 139 136-145 mmol/L Potassium Level 4.0 3.5-5.1 mmol/L Chloride Level 106 101-111 mmol/L Carbon Dioxide Level 28 21-32 mmol/L Blood Urea Nitrogen 11 7-18 mg/dL Creatinine 0.9 0.5-1.3 mg/dL Glomerular Filtration Rate Calc 94 >90 mL/min Random Glucose 148 H 70-105 mg/dL Total Calcium 8.6 8.5-10.1 mg/dL Magnesium Level 2.20 1.80-2.40 mg/dL Total Bilirubin 0.3 0.2-1.0 mg/dL Aspartate Amino Transf (AST/SGOT) 17 10-37 U/L Alanine Aminotransferase (ALT/SGPT) 28 12-78 U/L Alkaline Phosphatase 58 50-136 U/L Total Protein 5.8 L 6.0-8.3 g/dL Albumin 2.9 L 3.5-5.0 g/dL White Cell Morphology Comment CONSISTENT W/DIFF Current Medications Medications (Trade) Dose Ordered Sig/Manoj Route PRN Reason Start Time Stop Time Status Last Admin Dose Admin Acetaminophen (TYLenol 325MG TAB) 650 mg Q4H PRN PO TEMPERATURE GREATER THAN 101 05/06/25 21:30 06/05/25 21:29 Acetaminophen/ Hydrocodone Bitart (NORco 5/325MG) 1 tab Q4H PRN PO MODERATE PAIN (4-6) 05/06/25 21:30 05/11/25 21:29 05/07/25 22:05 1 TAB Atorvastatin Calcium (LIPItor 40MG) 40 mg DAILY PO 05/07/25 09:00 06/06/25 08:59 05/08/25 08:15 40 MG Enoxaparin Sodium (Lovenox) 40 mg DAILY SQ 05/07/25 09:00 06/06/25 08:59 05/08/25 08:15 40 MG Famotidine (Pepcid 20mg Vial) 20 mg BID IV 05/07/25 09:00 06/06/25 08:59 05/08/25 08:15 20 MG Insulin Human Regular (humuLIN R 100 UNIT/ML 3ML) AD PRN SQ SLIDING SCALE COVERAGE 05/06/25 21:30 06/05/25 21:29 05/07/25 07:43 4 UNIT Losartan Potassium (CozAAR 50 mg TAB) 50 mg DAILY PO 05/07/25 09:00 06/06/25 08:59 05/08/25 08:15 50 MG Morphine Sulfate (morPHINE 4MG SYG) 4 mg Q3H PRN IV SEVERE PAIN (7-10) 05/06/25 21:30 05/13/25 21:05/07/25 17:41 4 MG Ondansetron HCl (zoFRAN 4MG INJ) 4 mg Q4H PRN IVP NAUSEA 05/06/25 21:30 06/05/25 21:29 05/07/25 11:45 4 MG Potassium Chloride/Dextrose/ Sod Cl 1,000 ml @ 75 mls/hr [id number] IV 05/06/25 21:05/07/25 18:09 DC 05/07/25 00:44 75 MLS/HR DIAGNOSTICS / RADIOLOGY: [ ] ASSESSMENT: Rectal cancer, POA Status post robotic low anterior resection on 05/06/2025 Post op day 2 Burning micturition Diabetes mellitius type2,POA Hypertension,POA Hyperlipidemia,POA Arthritis,POA PLAN: Rectal cancer, POA Status post robotic low anterior resection on 05/06/2025 Post op day 2 Bowel sounds are clear. Has a AMIRA drain in place and output is 80ml yesterday. He has ileostomy and is passing soft output via ileostomy Shell's catheter was removed today. He is ambulating without difficulties. He has been able to void. He is on GI soft diet. DVT prophylaxis with SCD and Enoxaparin In the evening colorectal surgery cleared him for discharge. They prescribed him colace and hydrocodone. Burning micturition He complained of burning micturition, we ordered an urinalysis and it showed he is not having UTI. In the evening he had no pain. Diabetes mellitius type2,POA Today his blood glucose is 135. He is on insulin regular sliding scale. Hypertension,POA Today his blood pressure is 135/76. Continue losartan 50mg . Hyperlipidemia,POA Continue atorvastatin 40mg. In the evening colorectal surgery cleared him for discharge. He has no symptoms. He vitals are normal. He is medically stable. So we are signing off. Thank you for the consult. ATTESTATION BY PHYSICIAN I have seen and examined the patient. I reviewed the documentation, medical decision making, and treatment plan as noted by the resident provider above. I agree with the findings and plan of care. Thomas Pereira MD, AKSHAY MD May 08, 2025 15:03
--- NOTE | 2025-05-08 16:20 | NUR ---
DISCHARGE INSTRUCTIONS PT sitting in bed w/ eyes open A&O x4 able to make needs known Denies pain or discomfort. IV removed intact w/o complication. AMIRA drain removed intact w/o complications covered with 2x2 and tegaderm. Ileostomy care provided, bag changed education given. Discharge instructions given verbally and written. PT verbally acknowledged understanding. PT waiting in room for ride to arrive.
--- NOTE | 2025-05-08 17:01 | NUR ---
DISCHARGE PT escorted to POV via WC by REHABILITATION CLERK w/o complications
== END 2025-05-08 17:00 | disposition home or self-care (01) | DRG 331 ==
LOC: DAHIP 05-06 11:00 → 4AH 05-06 22:35
PROVIDERS: ADMIT Internal Medicine; ATTEND Internal Medicine
PROC: 0DJD8ZZ Inspection of Lower Intestinal Tract, Via Natural or Artificial Opening Endoscopic (ICD-10-PCS; 2025-05-06)
PROC: 8E0W4CZ Robotic Assisted Procedure of Trunk Region, Percutaneous Endoscopic Approach (ICD-10-PCS; 2025-05-06)
PROC: 0DTP4ZZ Resection of Rectum, Percutaneous Endoscopic Approach (ICD-10-PCS; principal; 2025-05-06 17:18)
PROC: 0D1B4Z4 Bypass Ileum to Cutaneous, Percutaneous Endoscopic Approach (ICD-10-PCS; 2025-05-06 17:18)
DX: C20 Malignant neoplasm of rectum (principal); F17.210 Nicotine dependence, cigarettes, uncomplicated; I10 Essential (primary) hypertension; E78.5 Hyperlipidemia, unspecified; E11.9 Type 2 diabetes mellitus without complications; Z85.048 Personal history of other malignant neoplasm of rectum, rectosigmoid junction, and anus
CPT/HCPCS: 36415; 45330; 80048; 80053; 81003; 82948; 83735; 85025; 85610; 85730; 86850; 86900; 86901; 93005; A4344; A5063; G0378; J0330; J1100; J1335; J1650; J1815; J2003; J2250; J2270; J2371; J2405; J2704; J2710; J2765; J3010; J3480; J3490; J7030; J7120; J8540; A4215; A4216; A4221; A4222; A4223; A4600; A4649; A4663; A4930; A6260; C1769; J0665

== ENCOUNTER → 2025-07-14 | Outpatient (CLI) | payer MEDICARE, MEDICAID ==
[~2025-07-14] MED LIST changes: +DOCU-116 PO; +HYDR-4060 PO
--- NOTE | 2025-07-15 13:02 | HMCIMG ---
Single CONTRAST GASTROGRAFIN ENEMA: Clinical history malignant neoplasm of rectum/ileostomy status for Gastrografin enema Finding: The plant protection officer film demonstrates non-specific gas pattern. There is no organomegaly or ectopic calculi. The osseous structures of the abdomen and pelvis appear to be normal. After placement of a rectal tube, Gastrografin enema was performed under fluoroscopy and overhead films were obtained. The study demonstrates there is no evidence of mass or polyp seen in the large bowel. There is reflux of barium in the terminal ileum. The appendix is not visualized. There is occasional evidence of a diverticulosis in descending and sigmoid colon.. IMPRESSION: NO MASS OR POLYPS SEEN IN THE SINGLE CONTRAST GASTROGRAFIN ENEMA. There is a right-sided ileostomy tube in place.
== END | disposition home or self-care (01) ==
LOC: RAH 07:09
PROVIDERS: ATTEND Surgery
DX: C20 Malignant neoplasm of rectum (principal); K57.30 Diverticulosis of large intestine without perforation or abscess without bleeding; K21.9 Gastro-esophageal reflux disease without esophagitis; Z93.2 Ileostomy status
CPT/HCPCS: 74270; Q9958